=== PATIENT | male | born 1965 | race Caucasian/White ===

== ENCOUNTER → 2022-10-24 | Outpatient (CLI) | payer BC ==
--- NOTE | 2022-10-24 11:23 | Diagnostic Imaging Report ---
EXAMINATION: US Abdomen limited. TECHNIQUE: Multiple real-time grayscale images were obtained over the right upper quadrant in various projections. REASON FOR EXAM: Chronic hepatitis. COMPARISON: None. FINDINGS: The liver is normal in size and shape. The liver echogenicity is increased. A cystic lesion is seen in the right hepatic lobe measuring 2.2 x 1.9 x 1.8 cm. No intrahepatic biliary dilatation is present. The common bile duct is obscured due to overlying bowel gas. The main portal vein is hepatopedal. No ascites in the upper abdomen. There is no evidence of cholelithiasis, gallbladder wall thickening or pericholecystic fluid. Sonographic Malave's sign is negative. The pancreas is not well visualized due to overlying bowel gas. The visualized portions of the IVC and aorta appear normal. The right kidney measures approximately 10.4 cm in length and has a normal appearance. IMPRESSION: 1. Increased echogenicity throughout the liver, which can be seen with hepatic steatosis. 2. Cystic lesion within the right hepatic lobe. This does not appear to be an aggressive lesion based on ultrasound characteristic. If indicated CT or MRI of the abdomen with liver protocol could be performed to further evaluate. Dictated by: Dictated on workstation # [id number]
== END ==
LOC: RAD 07:15
PROVIDERS: ATTEND Internal Medicine
DX: B18.2 Chronic viral hepatitis C (principal)
CPT/HCPCS: 76705